=== PATIENT | female | born 1970 | race Caucasian/White ===

== ENCOUNTER 2025-03-22 01:01 | Day surgery (SDC) | payer OTHER, SELFPAY ==
[2025-03-10 08:10] VITALS: BMI 25.8
--- NOTE | 2025-03-10 08:18 | PC.NURSE ---
[facility] has started construction of its new state of the art ER which will open Spring 2026. With this, we anticipate parking may be a challenge for some our surgical patients and families. Parking spaces are limited but are available for all Surgical, obstetrics, and ER patients sharing this lot. If you arrive and find you are having a hard time finding a parking space, please note that we understand the challenges, please drive around the hospital and park near Hospital Entrance 1. When you enter this entrance, you can ask a volunteer to direct or take you back to the surgical waiting area to check in. We appreciate everyone?s understanding of these expected challenges while we build for your future. Report to the Outpatient Waiting Room, entrance under the green pavilion located off [address], at time _0630_ on date _[id number]_. Planned Procedure Time: _0830_.? Time changes happen often and if your time is changed the preop area will call you the afternoon before. - You and your visitor will be asked to self-screen and do not enter if you have any COVID symptoms. Please call surgeon if you need to reschedule. - A mask is optional within the hospital at this time. Patients may have clear liquids (water, carbonated beverages, clear teas, apple juice) until 3 hours prior to surgery with a maximum of 20 ounces. - No food from midnight until time of surgery and no smoking, or chewing tobacco (or any form of nicotine). No chewing gum, candy or mints. Take only the following medications with a SIP of water on the morning of surgery: ___Levothyroxine and if needed nasal spray.____ DO NOT STOP ANY OF YOUR OTHER PRESCRIPTION MEDICATIONS PRIOR TO SURGERY EXCEPT THE FOLLOWING Hold all vitamins and supplements for 3 days per anesthesiologist. Medications to discontinue per physician Date to take last dose____ Please no make-up, nail algerian, hairspray, perfume, deodorant, or body powder the day of surgery.? No jewelry (including any body piercings) or valuables the day of surgery, leave them at home.? Please take a shower or bath the night before, or the morning of, surgery with an antibacterial soap.? Wear comfortable, loose fitting clothing.? - Jewelry must be removed prior to entering the operating room.? Rings and piercings that are not removed may be cut off. - The hospital will not accept responsibility for valuables.? - Please leave all valuables, including medications, at home the day of surgery. If you are going home after surgery, a licensed maintenance truck driver must drive you home.? - NO public transportation without another adult if you receive anesthesia. - We recommend that an adult stay with you for 24 hours following discharge. - We also recommend that you do not drive, make important decision, drink alcoholic beverages, or take any drugs that were not prescribed by your health care provider for at least 24 hours after your discharge time. Follow any additional instructions given to you from your surgeon. Telephone instructions given to __Cynthia__and asked if any additional questions and then verbalized understanding. Patient advised to call surgeon office or pre surgery nurse liaison [phone] if any additional questions.
[2025-03-22] VITALS (9 sets, daily range): BP systolic 112–128; BP diastolic 51–67; PULSE 60–77; RESP 14–20; TEMP 36.2–36.7; O2SAT 99–100; BMI 25.8
--- OUTSIDE RECORDS SUMMARY | 2025-03-22 01:03 | XMS_ITS | Clinical Summary ---
Author Organization [facility] Building A Address [address] [place] [address] Care Team Providers Care Overhauler Name Role Phone No, Physician Primary Care Provider [phone] Allergies Active Allergy Reactions Criticality Noted Date Comments Azithromycin Other (See comments) Reaction: Gastrointestinal Intolerance, Cefaclor Hives Reaction: hives, Erythromycin Other (See comments) Reaction: cramping in abd, Penicillin G Other (See comments) Reaction: allergy tested pos, Medications bran/gum/fib/ce l/psyl/kelp/pec (FIBER 6 ORAL) Take by mouth Active levothyroxine (SYNTHROID) 50 mcg tablet TAKE 1 TABLET BY MOUTH DAILY FOR LOW THYROID 90 tablet 3 09/18/2020 Active BLACK COHOSH ORAL Take by mouth Active turmeric root extract 500 mg capsule Take by mouth Active progesterone (PROMETRIUM) 100 mg capsuleIndicati ons:Menopausal symptoms TAKE 1 CAPSULE BY MOUTH EVERY DAY 90 capsule 2 01/10/2025 Active estradioL (ESTRACE) 1 mg tabletIndicatio ns:Menopausal symptoms TAKE 1 TABLET BY MOUTH EVERY DAY 90 tablet 2 01/10/2025 Active Active Problems Problem Noted Date Diagnosed Date Hormone replacement therapy 09/09/2023 Assessment & Plan (09/14/2024 2:21 PM CDT): Risks and benefits of hormone replacement (HRT) for vasomotor symptoms related to menopause discussed. Patient aware risks associated with HRT include increased risk of blood clots, heart attack, stroke, and increased risk of breast cancer. Patient verbalizes understanding of risk and benefits and wishes to proceed with HRT. - Continue oral estradiol and progesterone as prescribed. Patient/pharmacy to notify office when refills needed. Assessment & Plan (09/09/2023 6:54 AM CDT): Risks and benefits of hormone replacement (HRT) for vasomotor symptoms related to menopause discussed. Patient aware risks associated with HRT include increased risk of blood clots, heart attack, stroke, and increased risk of breast cancer. Patient verbalizes understanding of risk and benefits and wishes to proceed with HRT. - Refill on progesterone 100 mg daily and estradiol 1 mg daily sent to patient's pharmacy. Well woman exam 09/01/2021 Overview (08/29/2022): Pap: remote h/o that showed inflamation repeat was negative. 2021- wnl Labs with PCP Jeff: due. Colonoscopy: 09/10/21to repeat 2031 BMD: Gardasil: Didn't have Assessment & Plan (09/14/2024 2:21 PM CDT): Doing well. Return in one year for well woman exam and as needed. Current recommendations for cervical/breast cancer screening discussed. Orders: Pap, reflex HPV; Future Assessment & Plan (08/29/2022 3:46 PM CDT): Pap done. RTO 12m. I will send the results to the portal. If she has not heard in a week, to call the office. Assessment & Plan (09/01/2021 10:43 AM CDT): Pap done. RTO 12m. I will send the results to the portal. If she has not heard in a week, to call the office. Menopausal symptoms 09/01/2021 Assessment & Plan (09/04/2022 5:43 PM CDT): Options discussed as far as the different ways the progesterone can be altered Non hormonal options discussed. otc options discussed She will call back if her sx worse to the point she would like to try something pharmocologic. Assessment & Plan (09/01/2021 10:46 AM CDT): Options discussed along with the currently understood risk, benefits and alternatives. She voices understand and desires to proceed. Will start on bijuva Acquired hypothyroidism 11/15/2019 Acute sinusitis 06/21/2013 Overview (08/23/2016): ACUTE SINUSITIS NOS Immunizations Immunization Administration Dates Next Due Influenza, Quadrivalent, Spl it, Preservative Free, Intramuscular 03/05/2018 Influenza, Unspecified 03/03/2019 ZOSTER Recombinant 04/08/2021,11/24/2020 Surgical History Surgery Date Site/Laterality Comments OTHER SURGICAL HISTORY + PPD: treated AUGMENTATION MAMMAPLASTY DILATION AND CURETTAGE OF UTERUS x 2 Molar LAPAROSCOPY Fulguration of Endometriosis Medical History Medical History Date Comments Hx Other Medical lt ovary remove d; Comments: date unknown Hx Other Medical + PPD Hx Other Medical lt ovary remove d; Comments: date unknown Family History Medical History Relation Name Comments Colon cancer Father Cancer Neg Hx no colon, breas t or state federal relations deputy director cancer no change 08/29/22 cmt Relation Name Status Comments Father Social History Tobacco Use Types Packs/Day Years Used Date Smoking Tobacco: Never Smokeless Tobacco: Never Tobacco Cessation:Counseling Given: Not Answered Alcohol Use Standard Drinks/Week Comments No 0 (1 standard drink = 0.6 oz pur e alcohol) Humiliation, Afraid, Rape, and Kick questionnair e Answer Date Recorded Within the last year, have y ou been afraid of your partner or ex-partner? No 08/29/2022 Within the last year, have y ou been humiliated or emotionally abused in other ways by your partner or ex-partner? No Within the last year, have y ou been kicked, hit, slapped, or otherwise physically hurt by your partner or ex-partner? No 08/29/2022 Within the last year, have y ou been raped or forced to have any kind of sexual activity by your partner or ex-partner? No 08/29/2022 PHQ-2 Answer Date Recorded PHQ-2 Total Score (If total score is 3 or more points, staff should administer the PHQ-9) 0 09/14/2024 Comments No Sex and Gender Information Value Date Recorded Sex Assigned at Not on file Legal Sex Female 2:17 PM FILM EXAMINER Gender Identity Female 03/23/2021 10:03 AM CDT Sexual Orientation Not on file Obstetrics History Para Term AB IAB SAB Ectopic Multiple Livin g Live Births 2 0 0 0 2 0 0 0 0 0 0 Date Outcome GA Total Labor Labor/2nd/3rd Weight Sex Type Anes PTL Vikki A1 A5 Name Clin Molar Molar Last Filed Vital Signs Vital Sign Reading Time Taken Comments Blood Pressure 122/60 09/14/2024 11:09 AM CDT Pulse 86 08/29/2022 3:36 PM CDT Temperature - - Respiratory Rate 18 11/15/2019 10:24 AM CDT Oxygen Saturation 98% 09/01/2018 3:04 PM CDT Inhaled Oxygen Concentration - - Weight 67.1 kg (148 lb) 09/14/2024 11:09 AM CDT Height 162.6 cm (5' 4) 09/14/2024 11:09 AM CDT Body Mass Index 25.4 09/14/2024 11:09 AM CDT Plan of Treatment Health Maintenance Due Date Last Done Comments Colon Cancer Screening-Colonoscopy 1970 Hepatitis C Screening 1970 Hepatitis B Screening 1988 Breast Cancer Screening-Mammogram 12/25/2024 12/26/2023, 12/26/2023, 12/18/2022, Additional history exists Covid-19 Vaccine ( season) 2025 06/20/2020, 05/26/2020 Influenza Vaccine (#1) 2025 , 02/26/2023, 02/28/2022, Additional history exists Cervical Cancer Screening 09/14/20252024, 09/08/2023, 08/29/2022, Additional history exists Depression Screening 09/14/2025 09/14/2024, 09/08/2023, 08/29/2022, Additional history exists Regular Well Visit/Exam 18-64 09/14/2025 09/14/2024, 09/08/2023, 08/29/2022, Additional history exists DTaP/Tdap/Td Vaccine (2 - Td or Tdap) 11/16/2030 11/16/2020 Zoster Vaccine Completed 04/08/2021, 11/24/2020 Pneumococcal vaccine <65 Aged Out No longer eligible based on patient's age to complete this topic Procedures Procedure Name Priority Date/Time Associated Diagnosis Comments PAP, REFLEX HPV Routine 09/14/2024 11:39 AM CDT Well woman exam SCREENING MAMMOGRAM BILATERAL W KAPIL W IMPLANTS Schedule Routine, Read Routine (OP Routine) 11/11/2018 5:02 PM CDT Encounter for screening mammogram for malignant neoplasm of breast from Last 3 Months or Most Recently Relevant to Health Maintenance Results * Pap, reflex HPV (09/14/2024 11:39 AM CDT) CLINICAL INFORMATION: Luna Medina Comment: Postmenopausal WELL WOMAN LMP Luna Medina Comment:POSTMENOPAUSAL Previous Pap Luna Medina Comment:NONE GIVEN Prev. Bx Luna Medina Comment:NONE GIVEN SOURCE: Luna Medina Comment:Cervix, Endocervix Pap, specimen adequacy Luna Medina Comment: Satisfactory for evaluation. Endocervical/transformation zone component absent. HPV interp Luna Medina Comment: Cytology Results: Negative for intraepithelial lesion or malignancy. COMMENTS Luna Medina Comment: This Pap test has been evaluated with computer assisted technology. Bakery Demonstrator Yeyo Vazquez Comment: BES, CT(ASCP) CT screening location: [place] [address] [place] [address] Comment Luna Medina Comment: EXPLANATORY NOTE: The Pap is a screening test for cervical cancer. It is not a diagnostic test and is subject to false negative and false positive results. It is most reliable when a satisfactory sample, regularly obtained, is submitted with relevant clinical findings and history, and when the Pap result is evaluated along with historic and current clinical information. Thin prep 09/14/2024 11:3 9 AM CDT 09/15/2024 2:44 PM CDT Soco Han NUT ORCHARDIST LAB CYTOLOGY ORDERABLES [facility] [address] [place] [address] * Screening Mammogram Bilateral W Kapil W Implants (11/11/2018 5:02 PM CDT) Anatomical Region Laterality Modality Breast Bilateral Mammography 11/12/2018 6:45 AM CDT Impressions 11/12/2018 7:03 AM CDT 1. NO DEFINITIVE MAMMOGRAPHIC EVIDENCE OF MALIGNANCY 2. ANNUAL FOLLOW-UP RECOMMENDED BI-RADS 2 Electronically signed by: James Aleman M.D. Narrative 11/12/2018 7:03 AM CDT SCREENING MAMMOGRAM BILATERAL W KAPIL W IMPLANTS HISTORY: Encounter for screening mammogram for malignant neoplasm of breast TECHNIQUE: 4 views of each breast were obtained with bilateral breast tomosynthesis and implant displacement views. COMPARISON: Dating back to 03/13/2010 FINDINGS: The breasts are heterogeneously dense. No suspicious mass or calcification is seen to suggest mammographic evidence of malignancy. There are bilateral subglandular breast implants with coarse calcifications around the implants. Digital technology was employed plus computer aided detection software (R2) was utilized in interpretation of these images. This facility utilizes a reminder system to notify patient's of yearly mammograms. Mendy Han MD IMG MAMMO PROCEDURES Krystle l Result from Last 3 Months or Most Recently Relevant to Health Maintenance Insurance [facility] OPEN ACCESS [employer] CLAIMS OFFICE [facility] Care Teams Overhauler Relationship Specialty Start Date End Date No, Physician PCP - General 08/20/21
--- OUTSIDE RECORDS SUMMARY | 2025-03-22 01:03 | XMS_ITS | Encounter Summary ---
Author Organization [facility] Address [address] [place] [address] Phone Care Team Providers Care Pneumatic Tool Repairer Name Role Phone Jocelyn Guzman APRN, TALI Primary Care P rovider Encounter Details Date Type Department Care Team (Latest Contact Info) Description 10/02/2023 Transcribe Orders [facility] Laboratory Services [address] [place] [address] Jodi Paredes APRN, AIR CREW OFFICER [address] [place] [address] Immunity status testing (Primary Dx) Social History Tobacco Use Types Packs/Day Years Used Date Smoking Tobacco: Never Smokeless Tobacco: Never Alcohol Use Standard Drinks/Week Comments Not Currently 0 (1 standard drink = 0.6 oz pur e alcohol) [facility] Utilities Answer Date Recorded In the past 12 months has [employer] electric, gas, oil, or water company threatened to shut off services in your home? Patient declined 09/10/2023 Social Connection and Isolation Panel Answer Date Recorded In a typical week, how many times do you talk on the phone with family, friends, or neighbors? Patient declined 09/10/2023 How often do you get togethe r with friends or relatives? Patient declined 09/10/2023 How often do you attend temple or orthodoxy serv ices? Patient declined 09/10/2023 Do you belong to any clubs o r organizations such as temple groups, unions, fraternal or athletic groups, or school groups? Patient declined 09/10/2023 How often do you attend meet ings of the clubs or organizations you belong to? Patient declined 09/10/2023 Are you , , di vorced, , never , or living with a partner? Patient declined 09/10/2023 AUDIT-C Answer Date Recorded Q1: How often do you have a drink containing alc ohol? Patient declined 09/10/2023 Q2: How many drinks containi ng alcohol do you have on a typical day when you are drinking? Patient declined 09/10/2023 Q3: How often do you have si x or more drinks on one occasion? Patient declined 09/10/2023 Overall Financial Resource Strain (CARDIA) Answe r Date Recorded How hard is it for you to pa y for the very basics like food, housing, medical care, and heating? Patient declined 09/10/2023 PHQ-2 Answer Date Recorded Total Score - Questions 1-9 0 07/0 05/2020 [facility] - Occupational Stress Questionnaire Answer Date Recorded Do you feel stress - tense, restless, nervous, or anxious, or unable to sleep at night because your mind is troubled all the time - these days? Patient declined 09/10/2023 Exercise Vital Sign Answer Date Recorde d On average, how many days pe r week do you engage in moderate to strenuous exercise (like a brisk walk)? Patient declined On average, how many minutes do you engage in exercise at this level? Patient declined 09/10/2023 Hunger Vital Sign Answer Date Recorded Within the past 12 months, y ou worried that your food would run out before you got the money to buy more. Patient declined Within the past 12 months, t he food you bought just didn't last and you didn't have money to get more. Patient declined PRAPARE - Transportation Answer Date Re corded In the past 12 months, has l ack of transportation kept you from medical appointments or from getting medications? Patient declined 09/10/2023 In the past 12 months, has l ack of transportation kept you from meetings, work, or from getting things needed for daily living? Patient declined 09/10/2023 Housing Stability Vital Sign Answer Po e Recorded In the last 12 months, was t here a time when you were not able to pay the mortgage or rent on time? Patient declined 09/10/19 24 Number of Places Lived in the Last Year Not on f ile 09/10/2023 In the last 12 months, was t here a time when you did not have a steady place to sleep or slept in a longterm (including now)? Patient declined 09/10/2023 Education Answer Date Recorded What is the highest level of school you have completed or the highest degree you have received? Bachelor's degree (e.g., BA, AB, BS) 11/14/2020 Sexually Active Control Partners Comments Not Currently Comments No Sex and Gender Information Value Date Recorded Sex Assigned at Not on file Legal Sex Female 9:37 PM CDT Gender Identity Not on file Sexual Orientation Not on file documented as of this encounter Plan of Treatment Upcoming Encounters Date Type Department Care Team (Late st Contact Info) Description 12/29/2025 8:45 AM CDT [facility] [address] [place] [address] Jocelyn Guzman APRN, AIR CREW OFFICER [address] [place] [address] 02/13/2026 10:45 AM CDT Office Visit [facility] - Primary Care - [place] [address] [place] [address] Jocelyn Guzman APRN, AIR CREW OFFICER [address] [place] [address] documented as of this encounter Results * HEPATITIS B SURFACE ANTIBODY (HBSAB) (10/03/2023 8:21 AM CDT) HEPATITIS B SURFACE ANTIBODY 16,718.46 mIU/mL 10/03/2023 3:58 PM CDT [facility] Comment: Detected Range: >12.00 Individual is considered immune to HBV infection Blood Venipuncture / Unknown 10/03/2023 8:21 AM CDT 10/03/2023 10:00 AM CDT us Jodi Paredes APRN, AIR CREW OFFICER CHEMISTRY ORDERABLE S Final Result [facility] [address] [place] [address], documented in this encounter Visit Diagnoses Diagnosis Immunity status testing- Primary Antibody response examination Visit for screening mammogram Other screening mammogram documented in this encounter Additional Health Concerns Assessment Noted Time PHQ-9 Depression Total Score: 0 11/17/19 8:00 AM CDT documented as of this encounter Care Teams Pneumatic Tool Repairer Relationship Specialty Start Date End Date Jocelyn Guzman APRN, AIR CREW OFFICER [address] [place] [address] PCP - General Advanced Practice Nurse 03/13/23 documented as of this encounter
--- OUTSIDE RECORDS SUMMARY | 2025-03-22 01:04 | XMS_ITS | Encounter Summary ---
Author Organization [facility] Address [address] [place] [address] Phone Care Team Providers Care Metal Trim Erector Name Role Phone Jocelyn Guzman APRN, TALI Primary Care P rovider Encounter Details Date Type Department Care Team (Latest Contact Info) Description 07/08/2023 Transcribe Orders [facility] [address] [place] [id number] Jodi Paredes APRN, BULB PLANTER [address] [place] [address] Immunity status testing (Primary Dx) Social History Tobacco Use Types Packs/Day Years Used Date Smoking Tobacco: Never Smokeless Tobacco: Never Alcohol Use Standard Drinks/Week Comments Not Currently 0 (1 standard drink = 0.6 oz pur e alcohol) PHQ-2 Answer Date Recorded Total Score - Questions 1-9 0 07/0 05/2020 Education Answer Date Recorded What is the [...] Info) Description 12/29/2025 8:45 AM CDT [facility] [address] [place] [id number] Jocelyn Guzman APRN, CNP [address] [place], [place] [id number] 02/13/2026 10:45 AM CDT Office Visit [facility] - Primary Care - [place] [address] [place] [id number] Jocelyn Guzman APRN, CNP [address] [place] [address] documented as of this encounter Results * HEPATITIS B SURFACE ANTIBODY (HBSAB) (07/09/2023 8:11 AM MANAGER COMPETITIVE INTELLIGENCE) HEPATITIS B SURFACE ANTIBODY <8.00 mIU/mL [facility] [id number] B 07/09/2023 3:12 PM MANAGER COMPETITIVE INTELLIGENCE [facility] Comment:Individual is consid ered not immune to HBV infection. Blood Venipuncture / Unknown 07/09/2023 8:11 AM MANAGER COMPETITIVE INTELLIGENCE 07/09/2023 8:41 AM MANAGER COMPETITIVE INTELLIGENCE us Jodi Paredes APRN, CNP CHEMISTRY ORDERABLE S Final Result [facility] [address] [place] [address], [place] documented in this encounter Visit Diagnoses Diagnosis Immunity status testing- Primary Antibody response examination Visit for screening mammogram Other screening mammogram documented in this encounter Additional Health Concerns Assessment Noted Time PHQ-9 Depression Total Score: 0 11/17/19 8:00 AM CDT documented as of this encounter Care Teams Metal Trim Erector Relationship Specialty Start Date End Date Jocelyn Guzman APRN, CNP [address] [place] [address] PCP - General Advanced Practice Nurse 03/13/23 documented as of this encounter
--- OUTSIDE RECORDS SUMMARY | 2025-03-22 01:04 | XMS_ITS | Clinical Summary ---
Author Organization [facility] Address [address] [place] [address] Phone Care Team Providers Care Joy Loader Name Role Phone Jocelyn Guzman APRN, TALI Primary Care P rovider Allergies Active Allergy Reactions Criticality Noted Date Comments Azithromycin Other (see Comments) 11/16/2020 Reaction: Gastrointestinal Intolerance, Cefaclor Hives 11/16/2020 Reaction: hives, Erythromycin Other (see Comments) 11/16/2020 Reaction: cramping in abd, Penicillin G Other (see Comments) 11/16/2020 Reaction: allergy tested pos, Medications ferrous sulfate 325 (65 Fe) MG Tablet Take 325 mg by mouth Every other day. Active polyethylene glycol (GLYCOLAX) 17 GM/SCOOP Powder Take 17 g by mouth daily. 17 g = 1 scoop. Dissolve in 4 -8 oz of water or other liquid. Active Progesterone (PROMETRIUM) 100 MG Capsule 2 Active Fluticasone Furoate (Flonase Sensimist) 27.5 MCG/SPRAY Suspension 1 [place] by Nasal route daily. Active estradiol (ESTRACE) 1 MG Tablet Take 1 mg by mouth daily. 5 Active levothyroxine (SYNTHROID) 50 MCG TabletIndications:A cquired hypothyroidism Take 1 Tablet by mouth daily. 90 Tablet 2 5 Active Active Problems Problem Noted Date Diagnosed Date Hypothyroidism 11/16/2020 Seasonal allergies 11/16/2020 Endometriotic cyst of ovary 11/16/2020 Encounters Date Type Department Care Team Description 02/22/2025 Results Follow-Up [facility] [place] [phone] Jocelyn Guzman APRN, CNP CMP (COMPREHENSIVE METABOLIC PANEL), LIPID PANEL, CBC WITH AUTO DIFFERENTIAL, THYROID SCREEN WITH REFLEX 02/22/2025 Travel 02/08/2025 1:30 PM CDT Office Visit [facility] [place] [phone] Jocelyn Guzman APRN, CNP Preventative health care (Adult) (Primary Dx); Acquired hypothyroidism Discharge Disposition: Discharged to home or Selfcare 02/07/2025 Travel 02/07/2025 MyChart RX Renewal [facility] - [address] [place] [phone] Kandice Kirkland MD Medication Renewal Declined 02/07/2025 Refill [facility] [address] [address] Kandice Kirkland MD Medication Refill 02/06/2025 Refill [facility] [place][note 2] [address] [place] [address] Kandice Kirkland MD Medication Refill 12/28/2024 Results Follow-Up [facility] [place] [place] [address] Luke Lala, PAC MENG SCREENING SALLY W IMPL DIGITAL W CAD W STEPHANIE 12/27/2024 8:38 AM CDT - 12/27/2024 11:59 PM CDT [facility] [place] [phone] Jocelyn Guzman, SOLE PAINTER, SIPHON OPERATOR Discharge Disposition: Discharged to home or Selfcare 12/27/2024 Travel from Last 3 Months Immunizations Immunization Administration Dates Next Due Covid-19, Mrna, Lnp-s, PF, 1 00 mcg/0.5 mL Dose (Moderna) 06/20/2020,05/26/2020 Influenza Vaccine, Quadrivalent, PF 02/28/2022,0 01/31/2020,03/05/2018 Influenza Vaccine,unspecified Formulation 2022,03/03/2019 Influenza,Split Virus,Trivalent,Injectable,PF 02/23/2025,02/04/2024 TDAP Vaccine 11/16/2020 Zoster Vaccine Recombinant 04/08/2021,11/24/2020 Family History Medical History Relation Name Comments Cancer Father colon Hypertension Father Heart Attack Maternal Grandfather Hypertension Mother Kidney Disease Mother Thyroid Disease Mother Relation Name Status Comments Father Alive Maternal Grandfather Mother Alive Social History Tobacco Use Types Packs/Day Years Used Date Smoking Tobacco: Never Passive Smoke Exposure: Never Smokeless Tobacco: Never Tobacco Cessation:Counseling Given: No Alcohol Use Standard Drinks/Week Comments Not Currently 0 (1 standard drink = 0.6 oz pur e alcohol) Social Connection and Isolation Panel Answer Date Recorded In a typical week, how many times do you talk on the phone with family, friends, or neighbors? Patient declined 12/10/2023 How often do you get togethe r with friends or relatives? Patient declined 12/10/2023 How often do you attend yazidi or buddhist serv ices? Patient declined 12/10/2023 Do you belong to any clubs o r organizations such as yazidi groups, unions, fraternal or athletic groups, or school groups? Patient declined 12/10/2023 How often do you attend meet ings of the clubs or organizations you belong to? Patient declined 12/10/2023 Are you , , di vorced, , never , or living with a partner? Patient declined 12/10/2023 AUDIT-C Answer Date Recorded Q1: How often do you have a drink containing alcohol? Never 12/10/2023 Q2: How many drinks containi ng alcohol do you have on a typical day when you are drinking? Patient does not drink Q3: How often do you have si x or more drinks on one occasion? Never 12/10/2023 Overall Financial Resource Strain (CARDIA) Answe r Date Recorded How hard is it for you to pa y for the very basics like food, housing, medical care, and heating? Patient declined 12/10/2023 PHQ-2 Answer Date Recorded Total Score - Questions 1-9 0 /2 07/2024 [facility] Occupat ional [facility] - Occupational Stress Questionnaire Answer Date Recorded Do you feel stress - tense, restless, nervous, or anxious, or unable to sleep at night because your mind is troubled all the time - these days? Patient declined 12/10/2023 Hunger Vital Sign Answer Date Recorded Within [...] appointments or from getting medications? Patient declined 12/10/2023 In the past 12 months, has l ack of transportation kept you from meetings, work, or from getting things needed for daily living? Patient declined 12/10/2023 Housing Stability Vital Sign Answer Po e Recorded In the last 12 months, was t here a time when you were not able to pay the mortgage or rent on time? Patient declined 09/10/19 Number of Places Lived in the Last Year Not on f ile 09/10/2023 In the last 12 months, was t here a time when you did not have a steady place to sleep or slept in a long term (including now)? Patient declined 09/10/2023 Housing Stability Vital Sign Answer Po e Recorded In the last 12 months, was t here a time when you were not able to pay the mortgage or rent on time? Patient declined 12/10/19 Number of Times Moved in the Last Year Not on fi le 12/10/2023 At any time in the past 12 m [facility], were you homeless or living in a long term (including now)? Patient declined 12/10/2023 Social Connection and Isolation Panel Answer Date Recorded In a typical week, how many times do you talk on the phone with family, friends, or neighbors? Patient declined 02/07/2025 How often do you get togethe r with friends or relatives? Patient declined 02/07/2025 How often do you attend yazidi or buddhist serv ices? Patient declined 02/07/2025 Do you belong to any clubs o r organizations such as yazidi groups, unions, fraternal or athletic groups, or school groups? Patient declined 02/07/2025 How often do you attend meet ings of the clubs or organizations you belong to? Patient declined 02/07/2025 Are you , , di vorced, , never , or living with a partner? Patient declined 02/07/2025 AUDIT-C Answer Date Recorded Q1: How often do you have a drink containing alcohol? Never 02/07/2025 Q2: How many drinks containi ng alcohol do you have on a typical day when you are drinking? Patient does not drink Q3: How often do you have si x or more drinks on one occasion? Never 02/07/2025 Overall Financial Resource Strain (CARDIA) Answe r Date Recorded How hard is it for you to pa y for the very basics like food, housing, medical care, and heating? Patient declined 02/07/2025 [facility] - Occupational Stress Questionnaire Answer Date Recorded Do you feel stress - tense, restless, nervous, or anxious, or unable to sleep at night because your mind is troubled all the time - these days? Patient declined 02/07/2025 Exercise Vital Sign Answer Date Recorde d On average, how many days pe r week do you engage in moderate to strenuous exercise (like a brisk walk)? 3 days 02/07/2025 On average, how many minutes do you engage in exercise at this level? 10 min 02/07/2025 Hunger Vital Sign Answer Date Recorded Within [...] appointments or from getting medications? Patient declined 02/07/2025 In the past 12 months, has l ack of transportation kept you from meetings, work, or from getting things needed for daily living? Patient declined 02/07/2025 Housing Stability Vital Sign Answer Po e Recorded In the last 12 months, was t here a time when you were not able to pay the mortgage or rent on time? Patient declined 02/08/20 25 Number of Times Moved in the Last Year Not on fi le 02/07/2025 At any time in the past 12 m [facility], were you homeless or living in a long term (including now)? Patient declined 02/07/2025 [facility] Utilities Answer Date Recorded In the past 12 months has th e electric, gas, oil, or water company threatened to shut off services in your home? Patient declined 02/07/2025 Education Answer Date Recorded What is the [...] on file Sexual Orientation Not on file Last Filed Vital Signs Vital Sign Reading Time Taken Comments Blood Pressure 126/60 02/08/2025 1:32 PM CDT Pulse 90 02/08/2025 1:32 PM CDT Temperature 36.6 C (97.9 F) 02/08/2025 1:32 PM CDT Respiratory Rate 18 12/12/2023 3:48 PM CDT Oxygen Saturation 97% 02/08/2025 1:32 PM CDT Inhaled Oxygen Concentration - - Weight 67.1 kg (148 lb) 02/08/2025 1:32 PM CDT Height 162.6 cm (5' 4) 02/08/2025 1:32 PM CDT Body Mass Index 25.4 02/08/2025 1:32 PM CDT Plan of Treatment Upcoming Encounters Date Type Department Care Team (Late st Contact Info) Description 12/29/2025 8:45 AM CDT Appointment [facility] [address] [place] [address] Jocelyn Guzman APRN, SIPHON OPERATOR [address] [place] [address] 02/13/2026 10:45 AM CDT Office Visit [facility] - [address] [place] [phone] Jocelyn Guzman APRN, SIPHON OPERATOR [address] [place] [address] Health Maintenance Due Date Last Done Comments Cologuard 2015 Immunochemical Fecal Occult Blood 2015 Pneumococcal Immunization (50+ years) (1 of 1 - PCV) 2020 Pap Smear 08/21/2024 08/21/2021, 10/17/2018 SARS-COV-2 Immunization ( season) 2025 03/31/2021, 06/20/2020, 05/26/2020 Mammogram 12/27/2025 12/27/2024, 01/2024, 12/18/2022, Additional history exists Cervical Cancer Screening (CCS) 09/11/2029 HPV/Cotest 09/11/2029 09/11/2024 Td Immunization Every 10 Years (Adults With 1 Tdap) 11/16/2030 11/16/2020 Colonoscopy 09/11/2031 09/10/2021 Colorectal Cancer Screening 09/11/2031 Respiratory Syncytial Virus (RSV) Immunization (Adult) (1 - 1-dose 75+ series) 2045 DTaP/Tdap/Td Immunization Discontinued 11/16/2020 Zoster Immunization Completed 04/08/2021, Hepatitis C Virus (HCV) Screening Completed 12/26/2023 Discussion re Starting/Frequency of Mammograms Discontinued 12/27/2024, 12/26/2023, 12/18/2022, Additional history exists Influenza Immunization Completed , 02/04/2024, 02/26/2023, Additional history exists Hepatitis B Immunization Discontinued Human Papillomavirus (HPV) Immunization Aged Out No longer eligible based on patient's age to complete this topic Meningococcal Immunization (ACWY) Aged Out No longer eligible based on patient's age to complete this topic Rotavirus Immunization Aged Out No lo nger eligible based on patient's age to complete this topic Procedures Procedure Name Priority Date/Time Associated Diagnosis Comments THYROID SCREEN WITH REFLEX Routine 02/22/2025 8:52 AM CDT Preventative health care (Adult) Acquired hypothyroidism CBC WITH AUTO DIFFERENTIAL Routine 02/22/2025 8:52 AM CDT Preventative health care (Adult) THYROID SCREEN WITH REFLEX Routine 02/22/2025 8:52 AM CDT Preventative health care (Adult) Acquired hypothyroidism LIPID PANEL Routine 02/22/2025 8:52 AM CDT Preventative health care (Adult) CMP (COMPREHENSIVE METABOLIC PANEL) Routine 02/22/2025 8:52 AM CDT Preventative health care (Adult) COMPLETE BLOOD COUNT (CBC) WITH DIFF Routine 02/22/2025 8:52 AM CDT Preventative health care (Adult) MENG SCREENING SALLY W IMPL DIGITAL W CAD W STEPHANIE Routine 12/27/2024 9:22 AM CDT Visit for screening mammogram HEPATITIS C ANTIBODY Routine 12/26/2023 8:23 AM CDT Preventative health care (Adult) from Last 3 Months or Most Recently Relevant to Health Maintenance Results * THYROID SCREEN WITH REFLEX (02/22/2025 8:52 AM CDT) TSH 1.787 0.300 - 5.000 mIU/L 02/22/2025 12:33 PM CDT [facility] Blood Venipuncture / Unknown 02/22/2025 8:52 AM CDT 02/22/2025 9:47 AM CDT us Jocelyn Guzman APRN, TALI CHEMISTRY ORDER HARSHA Final Result [facility] [address] [place] [address] * (ABNORMAL) CBC WITH AUTO DIFFERENTIAL (02/22/2025 8:52 AM CDT) WBC 5.37 4.00 - 12.00 10(3)/mcL 02/22/2025 9:53 AM CDT [facility] RBC 4.85 3.80 - 5.30 10(6)/mcL 02/22/2025 9:53 AM CDT [facility] HEMOGLOBIN (HGB) 13.9 12.0 - 15.8 g/dL 02/22/2025 9:53 AM CDT [facility] HEMATOCRIT (HCT) 43.1 36.0 - 47.0 % 02/22/2025 9:53 AM CDT [facility] MCV 88.9 82.0 - 96.0 fL 02/22/2025 9:53 AM CDT [facility] MCH 28.7 26.0 - 34.0 pg 02/22/2025 9:53 AM CDT [facility] MCHC 32.3 31.0 - 36.0 g/dL 02/22/2025 9:53 AM CDT [facility] PLATELET COUNT 176 140 - 440 10(3)/mcL 02/22/2025 9:53 AM CDT [facility] RDW 16.1(H) 11.8 - 15.5 % 02/22/2025 9:53 AM CDT [facility] MPV 10.2 9.7 - 12.4 fL 02/22/2025 9:53 AM CDT [facility] NEUTROPHILS 55.8 47.0 - 73.0 % 02/22/2025 9:53 AM CDT [facility] LYMPHOCYTES 33.5 18.0 - 42.0 % 02/22/2025 9:53 AM CDT [facility] MONOCYTES 7.1 4.0 - 12.0 % 02/22/2025 9:53 AM CDT [facility] EOSINOPHILS 2.6 0.0 - 5.0 % 02/22/2025 9:53 AM CDT [facility] BASOPHILS 0.6 0.0 - 1.0 % 02/22/2025 9:53 AM CDT [facility] IMMATURE GRANULOCYTE 0.4 0.0 - 0.4 % 02/22/2025 9:53 AM CDT [facility] ABSOLUTE NEUTROPHILS 3.00 1.60 - 7.70 10(3)/[facility] 02/22/2025 9:53 AM CDT [facility] ABSOLUTE LYMPHOCYTES 1.80 1.30 - 3.20 10(3)/[facility] 02/22/2025 9:53 AM CDT [facility] ABSOLUTE MONOCYTES 0.38 0.20 - 1.00 10(3)/[facility] 02/22/2025 9:53 AM CDT [facility] ABSOLUTE EOSINOPHIL 0.14 0.00 - 0.40 10(3)/[facility] 02/22/2025 9:53 AM CDT [facility] ABSOLUTE BASOPHILS 0.03 0.00 - 0.10 10(3)/[facility] 02/22/2025 9:53 AM CDT [facility] ABSOLUTE IMMATURE GRANULOCYTE 0.02 0.00 - 0.03 10 (3) [facility]. 02/22/2025 9:53 AM CDT [facility] NRBC PER 100 WBC 0 02/23/20 9:53 AM CDT [facility] Blood Venipuncture / Unknown 02/22/2025 8:52 AM CDT 02/22/2025 9:49 AM CDT us Jocelyn Guzman SOLE PAINTER, SIPHON OPERATOR HEMATOLOGY ORDE MOISES Final Result [facility] [address] [place] [address] * LIPID PANEL (02/22/2025 8:52 AM CDT) CHOLESTEROL 172 <200 mg/dL 02/22/2025 10:20 AM CDT [facility] TRIGLYCERIDES 67 <150 mg/dL 02/22/2025 10:20 AM CDT [facility] HDL CHOLESTEROL 58 >40 mg/dL 10:20 AM CDT [facility] LDL 101 <130 mg/dL 02/22/2025 10:20 AM CDT [facility] VLDL 13 10 - 50 mg/dL 02/22/2025 10:20 AM CDT [facility] CHOL/HDL RATIO 3.0 0.0 - 4.4 02/22/2025 10:20 AM CDT [facility] NON-HDL CHOLESTEROL 114 <130 mg/dL 02/22/2025 10:20 AM CDT [facility] IS THE PATIENT REQUIRED TO BE FASTING? Yes 02/22/2025 10:20 AM CDT [facility] HAS THE PATIENT BEEN FASTING? Yes 02/22/2025 10:20 AM T [facility] Blood Venipuncture / Unknown 02/22/2025 8:52 AM CDT 02/22/2025 9:47 AM CDT Narrative [facility] - 02/22/2025 10:20 AM CDT NCEP GUIDELINES FOR LIPID INTERPRETATION TOTAL CHOLESTEROL DESIRABLE <200 BORDERLINE 200-239 HIGH >=240 LDL CHOLESTEROL OPTIMAL <100 NEAR OPTIMAL 100-129 BORDERLINE 130-159 HIGH 160-189 VERY HIGH >=190 Calculated using the Friedewald equation. HDL CHOLESTEROL LOW <40 *HIGH >=60 TRIGLYCERIDES NORMAL <150 BORDERLINE 150-199 HIGH 200-499 VERY HIGH >=500 VLDL calculated using Triglycerides/5. *HDL CHOLESTEROL >=60 mg/dL counts as a negative risk factor; its presence removes one risk factor from the total. Based on guidelines from the National Cholesterol Education Program, desirable levels for non HDL cholesterol are 30 mg/dL above target levels for LDL cholesterol. us Jocelyn Guzman APRN, CNP CHEMISTRY ORDER HARSHA Final Result [facility] [address] [place] [address] * (ABNORMAL) CMP (COMPREHENSIVE METABOLIC PANEL) (02/22/2025 8:52 AM CDT) SODIUM 142 136 - 145 mmol/L 02/22/2025 10:20 AM CDT [facility] POTASSIUM 4.3 3.5 - 5.1 mmol/L 02/22/2025 10:20 AM CDT [facility] CHLORIDE 105 98 - 107 mmol/L 02/22/2025 10:20 AM CDT [facility] CO2, VENOUS 28 22 - 30 mmol/L 02/22/2025 10:20 AM CDT [facility] ANION GAP 13.3 <18.0 mmol/L 02/22/2025 10:20 AM CDT [facility] GLUCOSE 96 70 - 99 mg/dL 02/22/2025 10:20 AM CDT [facility] BUN 23(H) 10 - 20 mg/dL 02/22/2025 10:20 AM CDT [facility] CREATININE, BLOOD 0.88 0.60 - 1.00 mg/dL 02/22/2025 10:20 AM CDT [facility] BUN/CREATININE RATIO 26(H) 12 - 20 ratio 02/22/2025 10:20 AM CDT [facility] TOTAL PROTEIN 7.1 6.0 - 8.0 g/dL 02/22/2025 10:20 AM CDT [facility] ALBUMIN 4.2 3.5 - 5.0 g/dL 02/22/2025 10:20 AM CDT [facility] A/G RATIO 1.4 1.0 - 2.2 02/22/2025 10:20 AM CDT [facility] CALCIUM 9.3 8.7 - 10.5 mg/dL 02/22/2025 10:20 AM CDT [facility] T BILI 0.4 0.2 - 1.2 mg/dL 02/22/2025 10:20 AM CDT [facility] SGOT (AST) 20 <43 U/L 02/22/2025 10:20 AM CDT [facility] SGPT (ALT) 10 <56 U/L 02/22/2025 10:20 AM CDT [facility] ALKALINE PHOSPHATASE 45 40 - 150 U/L 02/22/2025 10:20 AM T [facility] IS THE PATIENT REQUIRED TO BE FASTING? No 02/22/2025 10:20 AM CDT [facility] GFR, ESTIMATED >60 >=60 02/22/2025 10:20 AM T [facility] Comment: Creatinine Clearance is the preferred criteria for selecting drug dose adjustments in renally impaired patients. The GFR is provided as additional pertinent clinical information. GFR is reported in mL/min/1.73 sq m. Calculation based on the 2020 Chronic Kidney Disease Epidemiology Collaboration (CKD-EPI) equation refit without adjustment for race. GFR, EST. >60 >=60 10:20 AM [facility] Comment: Creatinine Clearance is the preferred criteria for selecting drug dose adjustments in renally impaired patients. The GFR is provided as additional pertinent clinical information. GFR is reported in mL/min/1.73 sq m. Calculation based on the 2009 Chronic Kidney Disease Epidemiology Collaboration (CKD-EPI). GFR, EST. NONAFRICAN >60 >=60 02/22/2025 10:20 AM [facility] Comment: Creatinine Clearance is the preferred criteria for selecting drug dose adjustments in renally impaired patients. The GFR is provided as additional pertinent clinical information. GFR is reported in mL/min/1.73 sq m. Calculation based on the 2009 Chronic Kidney Disease Epidemiology Collaboration (CKD-EPI). Blood Venipuncture / Unknown 02/22/2025 8:52 AM CDT 02/22/2025 9:47 AM CDT us Jocelyn Guzman APRN, CNP CHEMISTRY ORDER HARSHA Final Result [facility] [address] [place] [address] * MENG SCREENING SALLY W IMPL DIGITAL W CAD W STEPHANIE (12/27/2024 9:22 AM CDT) Anatomical Region Laterality Modality breast Bilateral Mammography 12/27/2024 10:4 6 AM CDT Narrative 12/28/2024 9:22 AM CDT - MENG SCREENING SALLY W IMPL DIGITAL W CAD W STEPHANIE BILATERAL DIGITAL SCREENING MAMMOGRAM 3D/2D WITH CAD WITH MEDIOLATERAL OBLIQUE CRANIOCAUDAL WITH AUGMENTATION: 12/27/2024 The study was acquired using digital technology and interpreted from soft copy. Current study was also evaluated with ICAD version 7.2. 2D digital mammographic views, as well as 3D digital tomosynthesis were performed in the CC and MLO projections. CLINICAL: Routine screening. Patient has no complaints. No personal history of cancer. No family history of breast cancer. COMPARISONS: Comparison is made to exams dated: 12/26/2023, 12/18/2022, and 12/17/2021 [facility]. BREAST TISSUE:There are scattered areas of fibroglandular density. FINDINGS: Bilateral breast implants are stable with extra capsular silicone again seen on the right. No significant masses, calcifications, or other findings are seen in either breast. There has been no significant interval change. IMPRESSION: NEGATIVE There is no mammographic evidence of malignancy. Bilateral breast implants with extra capsular silicone present on the right, unchanged. A 1 year screening mammogram is recommended. A letter will be sent to the patient with these results. The patient will be entered into a reminder system with a target due date of 1 year for her next screening exam. Electronically signed by: Nara Duke M.D. ll/:12/27/2024 17:57:22 Aircraft Hydraulic Equipment Mechanic(s): RT Jud(R)(M), [facility] letter sent: Normal Exam Reading location: [facility] Mammogram BI-RADS: Category 1: Negative Procedure Note Nara Duke MD - 12/28/2024 - MENG SCREENING SALLY W IMPL DIGITAL W CAD W STEPHANIE BILATERAL DIGITAL SCREENING MAMMOGRAM 3D/2D WITH CAD WITH MEDIOLATERAL OBLIQUE CRANIOCAUDAL WITH AUGMENTATION: 12/27/2024 The study was acquired using digital technology and interpreted from soft copy. Current study was also evaluated with ICAD version 7.2. 2D digital mammographic views, as well as 3D digital tomosynthesis were performed in the CC and MLO projections. CLINICAL: Routine screening. Patient has no complaints. No personal history of cancer. No family history of breast cancer. COMPARISONS: Comparison is made to exams dated: 12/26/2023, 12/18/2022, and 12/17/2021 [facility]. BREAST TISSUE:There are scattered areas of fibroglandular density. FINDINGS: Bilateral breast implants are stable with extra capsular silicone again seen on the right. No significant masses, calcifications, or other findings are seen in either breast. There has been no significant interval change. IMPRESSION: NEGATIVE There is no mammographic evidence of malignancy. Bilateral breast implants with extra capsular silicone present on the right, unchanged. A 1 year screening mammogram is recommended. A letter will be sent to the patient with these results. The patient will be entered into a reminder system with a target due date of 1 year for her next screening exam. Electronically signed by: Nara Duke M.D. ll/:12/27/2024 17:57:22 Aircraft Hydraulic Equipment Mechanic(s): RT Jud(R)(M), [facility] letter sent: Normal Exam Reading location: [facility] Mammogram BI-RADS: Category 1: Negative us Jocelyn Guzman APRN, CNP [place] MAMMO ORDER HARSHA Final Result * HEPATITIS C ANTIBODY (12/26/2023 8:23 AM CDT) hepatitis C antibody 0.18 <1 S/CO 12/26/2023 3:41 PM CDT [facility] Comment: Signal/Cutoff ratio < 0.79 is Nondetected Signal/Cutoff ratio 0.80-0.99 is Grayzone Signal/Cutoff ratio > 0.99 is Detected Supplemental assays are recommended if signal/cutoff ratio is >/=1.00. Signal/cutoff ratio result >/= 5.00 is 97% predictive of positivity for recombinant immunoblot assay (RIBA) and will be reported to the [place] Department of Public Health as required. Blood Venipuncture / Unknown 12/26/2023 8:23 AM CDT 12/26/2023 8:39 AM CDT us Jocelyn Guzman APRN, CNP CHEMISTRY ORDER HARSHA Final Result [facility] [address] [place] [address], from Last 3 Months or Most Recently Relevant to Health Maintenance Insurance [facility] [employer] Advance Directives Documents on File Type Date Recorded Patient Sld Teacher Expl anation Power of Marketing Program Manager for Health Care 08/30/2021 2:48 PM POA Care Teams Joy Loader Relationship Specialty Start Date End Date Jocelyn Guzman APRN, [place] [address] [place] [id number] PCP - General Advanced Practice Nurse 03/13/23
[2025-03-22] MEDS: TRANEXAMIC ACID 1,000MG/ISO100 1,000 MG/100 ML BAG 200 MG IVPB (07:00)
[2025-03-22] MEDS: LACTATED RINGERS 1,000 ML 30 ML IV CONT ×2 (07:00→11:36)
--- NOTE | 2025-03-22 07:18 | WPDHPUPDATE1 ---
History and Physical Update Update Date/Time: 03/22/25 07:18 History and Physical has been reviewed, including an updated exam of the patient. There are NO changes in the patient's condition. Risks, benefits, and alternatives have been discussed and questions answered. Patient agrees to proceed with procedure.
--- NOTE | 2025-03-22 07:18 | W.PM.PROC2 ---
Procedure Note - Detailed Date of Procedure 03/22/25 Pre-op Diagnosis bilateral breast implant rupture Post-op Diagnosis Same Procedure Performed Bilateral breast implant removal and mastopexy Surgeon Darren Gutierrez MD Anesthesia General Findings Inverted T Superior medial pedicle Previous implants ruptured smooth silicone. Total capsulectomy completed. Implants were subglandular. Description of Procedure She is here today for the above. Previously and again today the risks, benefits, alternatives were discussed in extensive detail. I wanted her to be very realistic about the risks involved as well as expectations. We discussed aftercare and what to monitor for. Made sure answered all of her questions to her satisfaction today and consent was obtained. Marked in the preoperative holding area with her verification. The patient was taken to the operating room placed supine on the operating table. Anesthesia was provided by anesthesiology. A surgical time-out was taken. She was prepped and draped in a standard sterile fashion. Eleven blade was utilized to make a stab incision and infiltrated with low volume tumescent solution as a block. 10 Blade was used to make an IMF incision. Dissection was continued down to the capsules identified it is an elevated above the capsule for majority of the capsule. At this point the implant and the capsule were removed. Capsule sent to pathology. I tailor tacked the breast into position. Placed her in a sitting position. Verified the nipple-areolar location based on preoperative planning as well as intraoperative observations and measurements in full agreement. She was placed supine. I de-epithelialized the pedicle. I closed along the IMF with 2-0 Stratafix. Along the vertical with 2-0 PDS. I closed around the areola with 3-0 stratafix. 3-0 Monocryl along the vertical. 3-0 Stratafix along the IMF. I finally closed everything with running subcuticular 4-0 Monocryl and steri-strips. Brijjits were utilized for the vertical incision. Fluffs and surgical bra were placed. Estimated Blood Loss 30 Drains No Packing No Pathology Yes (Bilateral breast implant capsules) Complications No immediate complications Condition Stable Disposition PACU
--- NOTE | 2025-03-22 07:50 | WPDANESEPPF ---
Anes - Initial Pre Proc Eval Procedure: Operation Date: 03/22/25 08:30 Proposed Procedures p Bilateral Implant Removal with Bilateral Breast Mastopexy - Darren Gutierrez MD Date/Time: 03/22/25 07:50 Surgeon: Darren Gutierrez MD Pre Op Diagnosis: bilateral breast implant rupture Patient Data Age: 54 Gender: F Height: 1.63 m Weight: 68.25 kg Last Vital Signs Temp 36.4 C 03/22/25 07:15 Pulse 71 03/22/25 07:15 BP 112/51 L 03/22/25 07:15 Pulse Ox 100 03/22/25 07:15 O2 Del Method Room Air 03/22/25 07:15 Allergies Allergy/AdvReac Type Severity Reaction Status Date / Time cefaclor (From [facility]) Allergy Severe Hives Verified 03/22/25 07:11 Penicillins Allergy Unknown Unknown Verified 03/22/25 07:11 erythromycin base AdvReac Intermediate Abdominal Verified 03/22/25 07:11 Pain Home Medications ?Medication ?Instructions ?Recorded ?Confirmed ?Type levothyroxine 50 mcg tablet 50 mcg PO DAILY 03/10/25 03/22/25 History loratadine 10 mg tablet (Allergy 10 mg PO DAILY PRN allergy symptoms 03/10/25 03/10/25 History Relief (loratadine)) multivitamin (Daily Multi-Vitamin 1 tablet PO DAILY 03/10/25 03/10/25 History tablet) oxymetazoline 0.05 % nasal spray 2 spray intranasal Q12H PRN nasal 03/10/25 03/10/25 History (12 Hour Nasal Relief Mertens) congestion Laboratory Tests 03/22/25 06:54 Cotinine Negative Patient hx anesthesia problems: none Family hx anesthesia problems: none Results Review: All pre-operative results and documents have been reviewed as part of the pre-operative evaluation. [facility] Social History Social History Smoking status: Never smoker Living arrangements: with family Spiritual care concerns: No Anes - Eval Final PreProcedure Day of Procedure 03/22/25 07:50 Patient weight: normal Heart: regular rate and rhythm Lungs: clear to auscultation Airway: Mallampati scale class II Neurological: alert and oriented Last oral intake: >/= 8 hours ASA classification: II Emergent: no Anesthetic plan: proceed Anesthesia type and monitoring: general LMA and standard monitoring Results Review: All pre-operative results and documents have been reviewed as part of the pre-operative evaluation. Informed Consent: The patient's anesthetic plan and its attendant risks and benefits were discussed with the patient/family/POA. Questions were solicited and answers provided to the satisfaction of the patient/family/POA.
[2025-03-22] MEDS: ceFAZolin 2 GM in SODIUM CHLORIDE 0.9% IV 50 ML 100 ML IVPB (08:38)
[2025-03-22] MEDS: LACTATED RINGERS IRRIG 1,000 ML, LIDOCAINE 1% LOCAL INJ 50 ML, EPINEPHrine HCL INJ 1 MG... INFILTRATE (08:38)
--- NOTE | 2025-03-22 09:17 | S_PTH ---
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
[2025-03-22] MEDS: fentaNYL CITRATE INJ (*CRX) 100 MCG/2 ML VIAL 25 MCG IV PUSH ×6 (11:45→12:25)
[2025-03-22] MEDS: ONDANSETRON INJ 4 MG/2 ML VIAL IV PUSH (12:33)
[2025-03-22] MEDS: oxyCODONE HCL (*CRX) 5 MG TAB IR PO (13:53)
== END 2025-03-22 14:29 | disposition home or self-care (01) ==
PROVIDERS: Visit Provider Surgery Plastic and Reconstructive Surgery
PROC: (CPT 19316; principal; 2025-03-22 08:30)
DX: T85.41XA Breakdown (mechanical) of breast prosthesis and implant, initial encounter (principal); Y83.8 Other surgical procedures as the cause of abnormal reaction of the patient, or of later complication, without mention of misadventure at the time of the procedure
CPT/HCPCS: 19316; 19371; 80307; 88304; J0690; A9270; J0166; J1100; J1200; J2003; J2250; J2405; J2704; J3010; J3290; J7120